=== PATIENT | female | born 1995 | race Two or more races ===

== ENCOUNTER 2016-07-18 19:20 | Observation (INO) | payer MEDICAID ==
[~2016-07-18 19:20] MED LIST: ASCO500T11 PO; PREN27TA7 PO
== END 2016-07-18 21:15 | disposition home or self-care (01) | DRG 566 ==
LOC: LDRP 19:20
PROVIDERS: ADMIT Obstetrics & Gynecology; ATTEND Obstetrics & Gynecology
DX: O26.893 Other specified pregnancy related conditions, third trimester (principal); R10.9 Unspecified abdominal pain; Z3A.32 32 weeks gestation of pregnancy
CPT/HCPCS: 59025; 81002; G0378

== ENCOUNTER 2016-08-18 16:55 | Observation (INO) | payer MEDICAID | END 2016-08-18 18:35 | disposition home or self-care (01) | DRG 566 | LOC: LDRP 16:55 | PROVIDERS: ADMIT Specialist; ATTEND Specialist | DX: O26.893 Other specified pregnancy related conditions, third trimester (principal); M54.9 Dorsalgia, unspecified; R10.30 Lower abdominal pain, unspecified; Z3A.38 38 weeks gestation of pregnancy | CPT/HCPCS: 59025; 81002; G0378 ==

== ENCOUNTER 2016-08-19 18:06 | Observation (INO) | payer MEDICAID ==
[~2016-08-19] VITALS: Ht 160 cm; Wt 68.0 kg
[2016-08-19] MEDS ORDERED: LACTATED RINGER'S 1,000 ML IV ONE (18:51)
[2016-08-19] MEDS ORDERED: ONDANSETRON HCL 4 MG/2 ML VIAL IV ONE (19:00)
[2016-08-19 19:47] LABS: BUN/Creatinine Ratio 14.8; Calcium 8.7 mg/dL (8.5-10.1); Potassium 3.4 mmol/L (3.5-5.1)
[2016-08-19] MEDS ORDERED: POTASSIUM CHL 20 Meq TABLET PO ONE ×2 (20:45)
== END 2016-08-19 20:53 | disposition home or self-care (01) | DRG 566 ==
LOC: LDRP 18:06
PROVIDERS: ADMIT Specialist; ATTEND Specialist
DX: O21.2 Late vomiting of pregnancy (principal); O62.9 Abnormality of forces of labor, unspecified; Z3A.38 38 weeks gestation of pregnancy
CPT/HCPCS: 36415; 59025; 80048; 81002; 96360; 96374; G0378; J2405; 96365

== ENCOUNTER 2016-08-26 20:56 | Observation (INO) | payer MEDICAID | END 2016-08-26 22:15 | disposition home or self-care (01) | DRG 566 | LOC: LDRP 20:56 | PROVIDERS: ADMIT Obstetrics & Gynecology; ATTEND Obstetrics & Gynecology | DX: O26.893 Other specified pregnancy related conditions, third trimester (principal); Z3A.39 39 weeks gestation of pregnancy | CPT/HCPCS: 59025; 81002; G0378 ==

== ENCOUNTER 2016-08-30 10:00 | Observation (INO) | payer MEDICAID | END 2016-08-30 11:45 | disposition home or self-care (01) | DRG 566 | LOC: LDRP 10:00 | PROVIDERS: ADMIT Specialist; ATTEND Specialist | DX: O62.9 Abnormality of forces of labor, unspecified (principal); O26.893 Other specified pregnancy related conditions, third trimester; N89.8 Other specified noninflammatory disorders of vagina; Z3A.40 40 weeks gestation of pregnancy | CPT/HCPCS: 59025; 76818; 81002; G0378 ==

== ENCOUNTER 2016-08-31 02:03 | Inpatient (IN) | payer MEDICAID ==
[~2016-08-31] VITALS: Ht 30.5 cm; Wt 0.5 kg
[2016-08-31] MEDS: LACTATED RINGER'S 1,000 ML IV SCH ×3 (02:36→18:36)
[2016-08-31] MEDS ORDERED: LACT. RINGERS/OXYTOCIN 20UNITS 1,000 ML IV SCH (02:36)
[2016-08-31] MEDS ORDERED: WITCH HAZEL-GLYCERIN PAD TOP PRN (02:45)
[2016-08-31] MEDS ORDERED: LIDOCAINE 1% HCL (LOCAL ANESTH.) INJ 20ML MDV IJ ONE (02:45)
[2016-08-31] MEDS ORDERED: PHISODERM TOP SOLN 240ML BTL TOP PRN (02:45)
[2016-08-31] MEDS ORDERED: METHYLERGONOVINE MALEATE 0.2 MG/ML AMP IM PRN (02:45)
[2016-08-31] MEDS ORDERED: DERMOPLAST 60ML BOTTLE TOP PRN (02:45)
[2016-08-31 03:37] LABS: Urine RBC None Seen /hpf (0 - 4)
[2016-08-31 03:45] LABS: Basophils # (auto) 0 uL; Basophils % (auto) 0.4 % (0.0-2.0); Eosinophils # (auto) 0.1 uL; Eosinophils % (auto) 1.1 % (0.0-7.0); Hematocrit 32.4 % (36.0-46.0); Hemoglobin 10.7 g/dL (12.2-16.2); Lymphocytes # (auto) 1.9 uL; Lymphocytes % (auto) 20.7 % (10.0-50.0); Mean Corpuscular Hemoglobin 27.4 pg (28.0-32.0); Mean Corpuscular Hgb Conc. 33.1 g/dL (32.0-36.0); Mean Corpuscular Volume 82.9 fL (80.0-100.0); Mean Platelet Volume 9.1 fL (7.4-10.4); Monocytes # (auto) 0.6 uL; Neutrophils # (auto) 6.4 uL; Neutrophils % (auto) 70.8 % (37.0-80.0); Platelet Count (auto) 319 10^3/uL (140-450); Red Cell Distribution Width 13.5 % (11.6-16.0); White Blood Cell 9.1 10^3/uL (4.4-10.8)
[2016-08-31 03:57] LABS: Urine Bilirubin Negative (Negative); Urine Color Yellow (Yellow); Urine Glucose Normal (Normal); Urine Ketone Negative (Negative); Urine Mucus FEW (None Seen); Urine Nitrite Negative (Negative); Urine Squamous Epithelial Cell FEW /hpf (<5); Urine Urobilinogen Normal (Negative); Urine pH 6.5 (5.0-8.0)
[2016-08-31 03:58] LABS: Albumin 2.5 g/dL (3.4-5.0); BUN/Creatinine Ratio 15.5; Calcium 8.7 mg/dL (8.5-10.1); Potassium 3.5 mmol/L (3.5-5.1)
[2016-08-31 04:01] LABS: Bilirubin, Total 0.3 mg/dL (0.2-1.0); Total Protein 6.1 g/dL (6.4-8.2)
[2016-08-31 04:01] LABS: Urine Blood 1+ /uL (Negative)
[2016-08-31 04:16] LABS: INR 0.91 (0.9-1.15); Partial Thromboplastin Time 25.9 sec (22.64-33.71); Prothrombin Time 9.8 sec (9.37-12.3)
[2016-08-31] MEDS ORDERED: LIDOCAINE 2%HCL (LOCAL ANESTH.) INJ 20ML MDV ONE (05:12)
[2016-08-31] MEDS ORDERED: ePHEDrine SULFATE 50 MG/ML AMP IV ONE ×2 (05:15→06:30)
[2016-08-31] MEDS ORDERED: LIDOCAINE HCL 2 %PF INJ 10ML AMP IJ ONE (05:15)
[2016-08-31] MEDS ORDERED: fentaNYL W ROPIVACAINE 150 ML EPI SCH ×2 (05:15→06:30)
[2016-08-31] MEDS ORDERED: NALOXONE HCL 0.4 MG/ML VIAL IV ONE ×2 (05:15→06:30)
[2016-08-31] MEDS ORDERED: fentaNYL CITRATE 100 MCG/2 ML VL IV ONE (05:15)
[2016-08-31] MEDS ORDERED: SODIUM CHLORIDE 0.9% 500 ML IV PRN (06:17)
[2016-08-31] MEDS ORDERED: ACETAMINOPHEN 325 MG TAB PO PRN (10:15)
[2016-08-31] MEDS: IBUPROFEN 600 MG TAB PO PRN ×2 (15:47→20:00)
[2016-08-31 16:00] VITALS: BP 112/63
[2016-08-31 19:30] VITALS: BP 106/66
[2016-08-31 23:00] VITALS: BP 112/75
[2016-09-01] MEDS: LACTATED RINGER'S 1,000 ML IV SCH ×2 (02:36→10:36)
[2016-09-01] MEDS: IBUPROFEN 600 MG TAB PO PRN ×2 (03:10→12:40)
[2016-09-01 03:30] VITALS: BP 114/71
[2016-09-01] MEDS ORDERED: TETANUS-DIPTH-ACEL PERTUSSIS 0.5ML SYRG IM ONE (07:30)
[2016-09-01 08:00] VITALS: BP 103/70
[2016-09-01] MEDS ORDERED: DOCUSATE CALCIUM 240 MG CAP PO SCH (10:00)
[2016-09-01 12:00] VITALS: BP 106/60
== END 2016-09-01 12:55 | disposition home or self-care (01) | DRG 560 ==
LOC: LDRP 02:03 → OBSVTOIN 02:03
PROVIDERS: ADMIT Specialist; ATTEND Specialist
PROC: 10E0XZZ Delivery of Products of Conception, External Approach (ICD-10-PCS; principal; 2016-08-31)
PROC: 3E0S3CZ (ICD-10-PCS; 2016-08-31)
PROC: 00HU33Z Insertion of Infusion Device into Spinal Canal, Percutaneous Approach (ICD-10-PCS; 2016-08-31)
DX: O69.81X0 Labor and delivery complicated by cord around neck, without compression, not applicable or unspecified (principal); O76 Abnormality in fetal heart rate and rhythm complicating labor and delivery; Z88.0 Allergy status to penicillin; Z37.0 Single live birth; Z3A.40 40 weeks gestation of pregnancy; Z88.6 Allergy status to analgesic agent; Z88.5 Allergy status to narcotic agent; Z23 Encounter for immunization
CPT/HCPCS: 36415; 59025; 62282; 80053; 80307; 81001; 85025; 85610; 85730; 86850; 86900; 86901; 90715; 96361; 96366; 96372; J2590; J3010

== ENCOUNTER 2019-02-04 12:30 | Observation (INO) | payer SELFPAY | END 2019-02-04 13:51 | disposition home or self-care (01) | DRG 833 | LOC: LDRP 12:30 | PROVIDERS: ADMIT Obstetrics & Gynecology; ATTEND Obstetrics & Gynecology | DX: O26.893 Other specified pregnancy related conditions, third trimester (principal); R10.9 Unspecified abdominal pain; Z3A.31 31 weeks gestation of pregnancy | CPT/HCPCS: 59025; 81002; G0378 ==

== ENCOUNTER 2019-02-11 13:16 | Observation (INO) | payer MEDICAID ==
[2019-02-11] MEDS ORDERED: NIF10C PO (13:56)
== END 2019-02-11 14:51 | disposition home or self-care (01) | DRG 566 ==
LOC: LDRP 13:16
PROVIDERS: ADMIT Obstetrics & Gynecology; ATTEND Obstetrics & Gynecology
DX: O36.8330 Maternal care for abnormalities of the fetal heart rate or rhythm, third trimester, not applicable or unspecified (principal); O34.33 Maternal care for cervical incompetence, third trimester; O26.893 Other specified pregnancy related conditions, third trimester; M54.5 Low back pain; Z3A.32 32 weeks gestation of pregnancy
CPT/HCPCS: 59025; 76818; 81002; G0378

== ENCOUNTER 2019-02-18 14:33 | Observation (INO) | payer MEDICAID ==
[~2019-02-18 14:33] MED LIST changes: +NIF10C PO
[2019-02-18] MEDS ORDERED: BETAMETHASONE ACET (6MG/ML) 5ML VIAL IM SCH (15:00)
== END 2019-02-18 16:20 | disposition home or self-care (01) | DRG 861 ==
LOC: LDRP 14:33
PROVIDERS: ADMIT Specialist; ATTEND Specialist
DX: Z34.83 Encounter for supervision of other normal pregnancy, third trimester (principal); Z3A.33 33 weeks gestation of pregnancy
CPT/HCPCS: 59025; 76818; 81002; 96372; G0378; J0702

== ENCOUNTER 2019-02-19 15:57 | Observation (INO) | payer MEDICAID ==
[2019-02-19] MEDS ORDERED: BETAMETHASONE ACET (6MG/ML) 5ML VIAL IM ONE (16:15)
== END 2019-02-19 16:55 | disposition home or self-care (01) | DRG 566 ==
LOC: LDRP 15:57
PROVIDERS: ADMIT Obstetrics & Gynecology; ATTEND Obstetrics & Gynecology
DX: O36.8130 Decreased fetal movements, third trimester, not applicable or unspecified (principal); Z3A.33 33 weeks gestation of pregnancy
CPT/HCPCS: 59025; 81002; 96372; G0378

== ENCOUNTER 2019-04-01 11:00 | Observation (INO) | payer MEDICAID | END 2019-04-01 14:40 | disposition home or self-care (01) | DRG 566 | LOC: LDRP 11:00 | PROVIDERS: ADMIT Obstetrics & Gynecology; ATTEND Obstetrics & Gynecology | DX: O62.9 Abnormality of forces of labor, unspecified (principal); Z3A.39 39 weeks gestation of pregnancy | CPT/HCPCS: 59025; 76818; 81002; 84112; G0378 ==